=== PATIENT | female | born 1990 | race Two or more races ===

== ENCOUNTER 2025-01-17 06:17 | Day surgery (SDC) | payer OTHER ==
[2025-01-10 10:11] VITALS: BP 110/76
[2025-01-10 10:17] LABS: COVID-19 AG NEGATIVE (NEGATIVE)
[~2025-01-17] VITALS: Ht 177.8 cm; Wt 79.4 kg
[~2025-01-17 06:17] MED LIST: LOSARTAN POTASS50 MG PO; NORTRIPTYLINE H50 MG PO; TOPROL XL25 M1 PO; UBRELVY100 MG PO
[2025-01-17] MEDS ORDERED: KETOROLAC TROMETHAMINE 30 MG VIAL IV ONE (10:45)
[2025-01-17] MEDS ORDERED: MORPHINE SULFATE 4 MG/ML VIAL IV ONE (11:20)
[2025-01-21] MEDS ORDERED: CEFAZOLIN SODIUM 1,000 MG VIAL IV ONE (16:30)
== END 2025-01-17 13:00 | disposition home or self-care (01) ==
LOC: CIR.AMB 06:17
PROVIDERS: ATTEND Obstetrics & Gynecology Gynecologic Oncology
DX: D39.8 Neoplasm of uncertain behavior of other specified female genital organs (principal); A63.0 Anogenital (venereal) warts